=== PATIENT | male | born 1995 | race Two or more races ===

== ENCOUNTER 2018-03-31 20:57 | Emergency (ER) | payer OTHER ==
[~2018-03-31] VITALS: Ht 167.6 cm; Wt 59.1 kg
[2018-03-31] MEDS ORDERED: FAMOTIDINE 20 MG/2 ML ONE (21:30)
[2018-03-31] MEDS ORDERED: SODIUM CHLORIDE 0.9% 1,000ML IVBOLUS ONE (21:30)
[2018-03-31] MEDS ORDERED: FAMOTIDINE 20 MG/2 ML IVPush ONE (21:30)
[2018-03-31] MEDS ORDERED: SODIUM CHLORIDE FLUSH 10ML SYR IVF ONE (21:30)
[2018-03-31] MEDS ORDERED: methylPREDNISolone SOD SUCC 125 MG/2 ML IVPush ONE (21:30)
[2018-03-31] MEDS ORDERED: methylPREDNISolone SOD SUCC 125 MG/2 ML ONE (21:30)
[2018-03-31 23:42] VITALS: BP 121/79
== END 2018-03-31 23:43 | disposition home or self-care (01) ==
LOC: ED 22:44
DX: T78.1XXA Other adverse food reactions, not elsewhere classified, initial encounter (principal); J98.01 Acute bronchospasm
CPT/HCPCS: 96374; 96375; 99284; J2930; J7030; Q0177; S0028